=== PATIENT | female | born 1945 | race Caucasian/White ===

== ENCOUNTER → 2024-02-17 12:34 | Outpatient (REF) | payer MEDICARE, OTHER, SELFPAY | LOC: WDC 12:34 | PROVIDERS: ATTENDING PHYSICIAN Family Medicine | DX: Z12.31 Encounter for screening mammogram for malignant neoplasm of breast (principal) | CPT/HCPCS: 77063; 77067 ==

== ENCOUNTER → 2024-06-10 14:54 | Outpatient (REF) | payer MEDICARE, OTHER, SELFPAY | LOC: WDC 14:54 | PROVIDERS: ATTENDING PHYSICIAN Family Medicine | DX: R92.2 Inconclusive mammogram (principal) | CPT/HCPCS: 76641 ==

== ENCOUNTER → 2025-02-19 14:39 | Outpatient (REF) | payer MEDICARE, OTHER, SELFPAY | LOC: WDC 14:39 | PROVIDERS: ATTENDING PHYSICIAN Family Medicine | DX: Z12.31 Encounter for screening mammogram for malignant neoplasm of breast (principal) | CPT/HCPCS: 77063; 77067 ==

== ENCOUNTER → 2025-06-10 10:46 | Outpatient (REF) | payer MEDICARE, OTHER, SELFPAY | LOC: WDC 10:46 | PROVIDERS: ATTENDING PHYSICIAN Family Medicine | DX: R92.30 Dense breasts, unspecified (principal) | CPT/HCPCS: 76641 ==